=== PATIENT | male | born 1975 | race Caucasian/White ===

== ENCOUNTER 2018-08-23 09:45 | Inpatient (IN) | payer OTHER ==
[2018-08-23 10:33] VITALS: BMI 28.7
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
[2018-08-23] MEDS ORDERED: hydrOXYzine PAMOATE 25 MG CAPSULE (FP) PO PRN (11:05)
[2018-08-23] MEDS ORDERED: IBUPROFEN 400 MG TABLET (FP) PO PRN (11:05)
[2018-08-23] MEDS ORDERED: MENTHOL/PHENOL 1 EACH UD MM PRN (11:05)
[2018-08-23] MEDS ORDERED: MAGNESIUM HYDROX 2400MG/30ML ORAL SUSPENSION 30 ML CUP PO PRN (11:05)
[2018-08-23] MEDS ORDERED: MAG HYDROX/AL HYDROX/SIMETH 30 ML UNIT-DOSE CUP PO PRN (11:05)
[2018-08-23] MEDS ORDERED: LOPERAMIDE HCL 2 MG CAPSULE PO PRN (11:05)
[2018-08-23] MEDS ORDERED: chlordiazePOXIDE HCL 25 MG CAPSULE PO PRN (11:05)
[2018-08-23] MEDS ORDERED: NICOTINE POLACRILEX 2 MG GUM BUC PRN (11:05)
[2018-08-23] MEDS ORDERED: ACETAMINOPHEN 325 MG TABLET (FP) PO PRN (11:05)
[2018-08-23] MEDS ORDERED: MAGNESIUM CITRATE 300 ML BOTTLE PO PRN (11:05)
[2018-08-23] MEDS ORDERED: P-EPHED 60MG/TRIPROLIDI 2.5MG TABLET PO PRN (11:05)
[2018-08-23] MEDS ORDERED: guaiFENesin/D-METHORPHAN HB 10 ML UNIT-DOSE CUPS PO PRN (11:05)
[2018-08-23] MEDS ORDERED: METHADONE HCL 10 MG TABLET (FOR DETOX USE ONLY) PO ONE ×2 (12:45→23:00)
[2018-08-23] MEDS: chlordiazePOXIDE HCL 25 MG CAPSULE PO SCH ×2 (17:35→22:35)
[2018-08-23] MEDS ORDERED: THIAMINE HCL 100 MG TABLET (FP) PO SCH (22:00)
[2018-08-23] MEDS ORDERED: MELATONIN 5 MG TABLETS PO PRN (22:00)
[2018-08-23 22:41] LABS: URINE APPEARANCE TURBID; URINE BILIRUBIN NEGATIVE (<2.0 mg/dL); URINE COLOR DKYELLOW; URINE GLUCOSE (UA) NEGATIVE (NEGATIVE); URINE KETONE NEGATIVE (NEGATIVE); URINE LEUK ESTERASE NEGATIVE (NEGATIVE); URINE NITRITE NEGATIVE (NEGATIVE); URINE PROTEIN NEGATIVE (NEGATIVE); URINE UROBILINOGEN 4.0 E.U/dl mg/dL (0.2-1.0)
[2018-08-24] MEDS: chlordiazePOXIDE HCL 25 MG CAPSULE PO SCH ×2 (05:52→10:44)
[2018-08-24] MEDS ORDERED: PRENATAL VITAMINS W/ FOLIC ACID TABLET (FP) PO SCH (10:00)
[2018-08-24] MEDS ORDERED: METHADONE HCL 10 MG TABLET (FOR DETOX USE ONLY) PO SCH (10:00)
[2018-08-24 10:46] VITALS: BP 113/73; PULSE 56; TEMP 97.2
--- NOTE | 2018-08-24 12:32 | DS ---
[facility] Detox Discharge Summary Admission Date: 08/23/18 Discharge Date: 08/24/18 - History Present History: Alcohol Dependence, Cocaine Dependence, Opioid Dependence Additional Comments: Patient has been agitated and disrespectful towards staff. Patient noncompliant with admission labs and vital signs. Patient told staff to get out of his room. He later decided to leave AMA despite encouragement to complete detox. Patient instructed to call 911 if any withdrawal symptoms or feeling sick and to follow up with his PCP within 3 days. He is A, A, Ox3, in nad, ambulates freely. - Physical Exam Results Vital Signs: Vital Signs Temperature 97.2 F L 08/24/18 10:45 Pulse Rate 56 L 08/24/18 10:45 Respiratory Rate 20 08/24/18 10:45 Blood Pressure 113/73 08/24/18 10:45 O2 Sat by Pulse Oximetry (%) Pertinent Admission Physical Exam Findings: Withdrawal symptoms Patient refused admission labs (reordered in AM); admission UA normal - Medication Discharge Medications: Ambulatory Orders NK [No Known Home Medication] 08/23/18 - AMA Did Patient Leave Against Medical Advice: Yes (Instructed to call 911 if feeling sick or any withdrawal symptoms)
[2018-08-24] MEDS ORDERED: chlordiazePOXIDE HCL 25 MG CAPSULE PO SCH (17:00)
[2018-08-25] MEDS ORDERED: METHADONE HCL 5 MG TABLET (FOR DETOX USE ONLY) PO SCH (10:00)
[2018-08-25] MEDS ORDERED: chlordiazePOXIDE 5 MG CAPSULE PO SCH (17:00)
[2018-08-26] MEDS ORDERED: chlordiazePOXIDE HCL 10 MG CAPSULE PO SCH (17:00)
[2018-08-27] MEDS ORDERED: METHADONE HCL 10 MG TABLET (FOR DETOX USE ONLY) PO SCH (10:00)
[2018-08-28] MEDS ORDERED: METHADONE HCL 5 MG TABLET (FOR DETOX USE ONLY) PO SCH (06:00)
--- NOTE | 2018-08-28 15:28 | EKG ---
Test Reason : Blood Pressure : / mmHG Vent. Rate : 055 BPM Atrial Rate : 055 BPM P-R Int : 140 ms QRS Dur : 106 ms QT Int : 434 ms P-R-T Axes : 052 072 049 degrees QTc Int : 415 ms SINUS BRADYCARDIA OTHERWISE NORMAL ECG NO PREVIOUS ECGS AVAILABLE Confirmed by ASHOK MCWILLIAMS MD ([id number]) on 08/28/2018 3:28:23 PM Referred By: Confirmed By:ASHOK MCWILLIAMS MD
== END 2018-08-24 12:24 | disposition left against medical advice (07) | DRG 770 ==
LOC: YASAS 09:45 → Y3N 11:52
PROVIDERS: ADMIT Neuromusculoskeletal Medicine & OMM; ATTEND Neuromusculoskeletal Medicine & OMM
PROC: HZ2ZZZZ Detoxification Services for Substance Abuse Treatment (ICD-10-PCS; principal; 2018-08-23)
DX: F11.23 Opioid dependence with withdrawal (principal); F10.230 Alcohol dependence with withdrawal, uncomplicated; F14.20 Cocaine dependence, uncomplicated; F17.210 Nicotine dependence, cigarettes, uncomplicated; E86.0 Dehydration; R63.4 Abnormal weight loss; Z68.28 Body mass index [BMI] 28.0-28.9, adult; Z87.81 Personal history of (healed) traumatic fracture
CPT/HCPCS: 81003; 93005; 93010

== ENCOUNTER 2019-05-11 23:59 | Inpatient (IN) | payer OTHER ==
[2019-05-12 03:32] VITALS: BMI 28.7
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
[2019-05-12] MEDS ORDERED: MENTHOL/PHENOL 1 EACH UD MM PRN (04:19)
[2019-05-12] MEDS ORDERED: METHOCARBAMOL 500 MG TABLET PO PRN (04:19)
[2019-05-12] MEDS ORDERED: BISMUTH SUBSALICYLATE 524 MG/30 ML UD PO PRN (04:19)
[2019-05-12] MEDS ORDERED: MAGNESIUM CITRATE 300 ML BOTTLE PO PRN (04:19)
[2019-05-12] MEDS ORDERED: ACETAMINOPHEN 325 MG TABLET (FP) PO PRN ×2 (04:19)
[2019-05-12] MEDS ORDERED: MAG HYDROX/AL HYDROX/SIMETH 30 ML UNIT-DOSE CUP PO PRN (04:19)
[2019-05-12] MEDS ORDERED: MAGNESIUM HYDROX 2400MG/30ML ORAL SUSPENSION 30 ML CUP PO PRN (04:19)
[2019-05-12] MEDS ORDERED: hydrOXYzine PAMOATE 25 MG CAPSULE (FP) PO PRN (04:19)
[2019-05-12] MEDS ORDERED: cloNIDine HCL 0.1 MG TABLET PO PRN (04:19)
[2019-05-12] MEDS ORDERED: IBUPROFEN 400 MG TABLET (FP) PO PRN (04:19)
[2019-05-12] MEDS ORDERED: METHADONE HCL 10 MG TABLET (FOR DETOX USE ONLY) PO ONE (04:19)
[2019-05-12] MEDS ORDERED: MELATONIN 5 MG TABLETS PO PRN (04:19)
[2019-05-12] MEDS: PRENATAL VITAMINS W/ FOLIC ACID TABLET (FP) PO SCH (10:38)
--- NOTE | 2019-05-12 11:32 | PN ---
[facility] COWS - Scale Resting Pulse: 0= [place] 80 or Below Sweatin= Chills/Flushing Restless Observation: 0= Sits Still Pupil Size: 1= Pupils >than Normal Bone or Joint Aches: 2= Severe Diffuse Aches Runny Nose/ Eye Tearin= Runny Nose/Eyes GI Upset > 30mins: 2= Nausea/Diarrhea (no diarrhea) Tremor Observation of Outstretched Hands: 2= Slight Tremor Visible Yawning Observation: 2= >3x During Session Anxiety or Irritability: 2=Irritable/Anxious Goose Flesh Skin: 3=Piloerection COWS Score: 17 [facility] Progress Note (SOAP) Subjective: 44 years old male admitted on 05/12/19 for acute opiate withdrawal sx management have not received methadone first dose around 6 am reorder methadone 30 mg po x 1 Objective: 05/12/19 11:40 Vital Signs Temperature 97.3 F L 05/12/19 09:19 Pulse Rate 53 L 05/12/19 09:19 Respiratory Rate 16 05/12/19 09:19 Blood Pressure 96/60 05/12/19 09:19 O2 Sat by Pulse Oximetry (%) 05/12/19 11:40 admission lab order for 05/13/19 Assessment: 05/12/19 11:48 opiate withdrawal sx Plan: continue methadone detox regimen
[2019-05-12] MEDS ORDERED: METHADONE HCL 5 MG TABLET (FOR DETOX USE ONLY) PO ONE (12:00)
[2019-05-12 17:56] VITALS: BP 107/67; PULSE 47; TEMP 97.6
[2019-05-12] MEDS ORDERED: THIAMINE HCL 100 MG TABLET (FP) PO SCH (22:00)
[2019-05-13] MEDS ORDERED: METHADONE HCL 10 MG TABLET (FOR DETOX USE ONLY) ONE (09:08)
[2019-05-13] MEDS ORDERED: METHADONE HCL 5 MG TABLET (FOR DETOX USE ONLY) ONE (09:09)
[2019-05-13] MEDS: PRENATAL VITAMINS W/ FOLIC ACID TABLET (FP) PO SCH (09:37)
--- NOTE | 2019-05-13 09:37 | PN ---
[facility] COWS - Scale Resting Pulse: 0= [place] 80 or Below Sweatin= Chills/Flushing Restless Observation: 1= Difficult to Sit Still Pupil Size: 1= Pupils >than Normal Bone or Joint Aches: 2= Severe Diffuse Aches Runny Nose/ Eye Tearin= Nasal Congestion GI Upset > 30mins: 1= Stomach Cramp Tremor Observation of Outstretched Hands: 2= Slight Tremor Visible Yawning Observation: 2= >3x During Session Anxiety or Irritability: 2=Irritable/Anxious Goose Flesh Skin: 0=Smooth Skin COWS Score: 13 [facility] Progress Note (SOAP) Subjective: patient refuses admission blood work discuss the importance of blood work related opiate misuse health issues patient agrees to have blood to be drawn collaborate with commercial attorney [id number] who stated that resume cancelled admission order for 05/13/19 patient ate 80% ambulating on hallway from room to nurse station irritable de-escalated respond well Assessment: 05/13/19 09:55 opiate withdrawal sx alert irritable limited conversation with staff Plan: continue methadone detox regimen
[2019-05-13] MEDS ORDERED: METHADONE (DETOX) 20 MG, METHADONE (DETOX) 5 MG PO ONE (10:00)
--- NOTE | 2019-05-13 12:47 | DS ---
[facility] Detox Discharge Summary Admission Date: 05/12/19 Discharge Date: 05/13/19 - History Present History: Opioid Dependence Additional Comments: 44 years old male admitted on 05/12/19 for acute opiate withdrawal sx management insists to leave the detox that "I do not want to be here" patient refuses admission blood work as well as vital signs patient was tired yesterday sleeping most of the day feeling little better today ate breakfast ambulating on hallway dislike been "locked" in prefers to go out the building - Physical Exam Results Vital Signs: Vital Signs Temperature 97.6 F 05/12/19 17:56 Pulse Rate 47 L 05/12/19 17:56 Respiratory Rate 18 05/13/19 03:30 Blood Pressure 107/67 05/12/19 17:56 O2 Sat by Pulse Oximetry (%) Pertinent Admission Physical Exam Findings: opiate withdrawal sx Vital Signs Temperature 97.6 F 05/12/19 17:56 Pulse Rate 47 L 05/12/19 17:56 Respiratory Rate 18 05/13/19 03:30 Blood Pressure 107/67 05/12/19 17:56 O2 Sat by Pulse Oximetry (%) no admission blood work patient is alert oriented x 3 speech clearly coherently that he prefers not be locked but wants to go out side the building - Treatment Hospital Course: Detox Protocol Followed, Responded well Patient has Accepted a Rehab Referral to: medication assisted treatment program - Medication Discharge Medications: Ambulatory Orders NK [No Known Home Medication] 08/23/18 - Diagnosis (1) Opioid dependence with withdrawal Status: Acute (2) Nicotine dependence Status: Acute Qualifiers: Nicotine product type: cigarettes Substance use status: in withdrawal Qualified Code(s): F17.213 - Nicotine dependence, cigarettes, with withdrawal - AMA Did Patient Leave Against Medical Advice: Yes
[2019-05-14] MEDS ORDERED: METHADONE HCL 10 MG TABLET (FOR DETOX USE ONLY) PO ONE (10:00)
[2019-05-15] MEDS ORDERED: METHADONE (DETOX) 10 MG, METHADONE (DETOX) 5 MG PO ONE (10:00)
[2019-05-16] MEDS ORDERED: METHADONE HCL 10 MG TABLET (FOR DETOX USE ONLY) PO ONE (10:00)
[2019-05-17] MEDS ORDERED: METHADONE HCL 5 MG TABLET (FOR DETOX USE ONLY) PO ONE (06:00)
== END 2019-05-13 11:25 | disposition left against medical advice (07) | DRG 770 ==
LOC: YASAS 23:59 → Y3N 05-12 03:31
PROVIDERS: ADMIT Surgery; ATTEND Surgery
PROC: HZ2ZZZZ Detoxification Services for Substance Abuse Treatment (ICD-10-PCS; principal; 2019-05-12)
DX: F11.23 Opioid dependence with withdrawal (principal); F17.213 Nicotine dependence, cigarettes, with withdrawal